=== PATIENT | female | born 1995 | race Caucasian/White ===

== ENCOUNTER 2020-06-09 19:26 | Inpatient (IN) | payer MEDICAID, OTHER ==
[~2020-06-09] VITALS: Ht 167.6 cm; Wt 78.5 kg
[2020-06-09 20:13] LABS: Basophils # (auto) 0 10 ^3/uL (0-0.2); Basophils % (auto) 0.4 % (0.0-2.0); Eosinophils # (auto) 0.3 10 ^3/uL (0-0.8); Eosinophils % (auto) 3.4 % (0.0-7.0); Hematocrit 36.4 % (36.0-46.0); Hemoglobin 12.7 g/dL (12.2-16.2); Lymphocytes # (auto) 1.9 10 ^3/uL (0.4-5.4); Mean Corpuscular Hemoglobin 30.6 pg (28.0-32.0); Mean Corpuscular Hgb Conc. 34.9 g/dL (32.0-36.0); Mean Corpuscular Volume 87.7 fL (80.0-100.0); Monocytes # (auto) 0.6 10 ^3/uL (0-1.3); Monocytes % (auto) 7.4 % (0.0-12.0); Neutrophils # (auto) 5.6 10 ^3/uL (1.6-8.6); Neutrophils % (auto) 65.8 % (37.0-80.0); Platelet Count (auto) 205 10^3/uL (140-450); Red Blood Cells 4.15 10^6/uL (4.0-5.20); Red Cell Distribution Width 13.3 % (11.8-14.3); White Blood Cell 8.4 10^3/uL (4.4-10.8)
[2020-06-09 20:37] LABS: Albumin 3.5 g/dL (3.4-5.0); Calcium 8.6 mg/dL (8.5-10.1); Potassium 4.2 mmol/L (3.5-5.1)
[2020-06-09 20:41] LABS: BUN/Creatinine Ratio 23.2; Bilirubin, Total 0.3 mg/dL (0.2-1.0)
[2020-06-09] MEDS ORDERED: IODIXANOL 320MG/ML 100ML BTL IV ONE (21:14)
[2020-06-09 21:50] LABS: Urine Bacteria FEW /hpf (None Seen); Urine Blood Negative /uL (Negative); Urine Specific Gravity 1.011 (1.001-1.035); Urine WBC 31 /hpf (0 - 5)
[2020-06-09] MEDS ORDERED: MORPHINE SULFATE 4 MG/ML SYR/VIAL IV ONE (22:45)
[2020-06-09] MEDS ORDERED: KETOROLAC TROMETH 30 MG/ML 1ML VIAL IV ONE (22:45)
[2020-06-09] MEDS ORDERED: SODIUM CHLORIDE 0.9% 1,000 ML IV ONE (22:45)
[2020-06-09] MEDS ORDERED: ONDANSETRON HCL 4 MG/2 ML VIAL IV ONE (22:45)
[2020-06-09] MEDS: cefTRIAXone 1GM/50ML D5W 50 ML IV ONE ×2 (23:08→23:23)
[2020-06-10] MEDS ORDERED: ACETAMINOPHEN 325 MG TAB PO PRN (02:45)
[2020-06-10] MEDS ORDERED: TAMSULOSIN HYDROCHLORIDE 0.4 MG CAP PO ONE (02:45)
[2020-06-10] MEDS ORDERED: KETOROLAC TROMETH 30 MG/ML 1ML VIAL IV PRN (02:45)
[2020-06-10] MEDS ORDERED: TEMAZEPAM 15 MG CAP PO PRN (02:45)
[2020-06-10] MEDS: cefTRIAXone 1GM/50ML D5W 50 ML IV SCH (09:00)
[2020-06-10] MEDS: FAMOTIDINE 20 MG TAB PO SCH ×2 (09:34→21:41)
[2020-06-10] MEDS ORDERED: MORPHINE SULF INJ 2 MG/ML SYRINGE 1ML IV ONE (13:00)
[2020-06-10] MEDS: ONDANSETRON HCL 4 MG/2 ML VIAL IV PRN (13:12)
[2020-06-10] MEDS ORDERED: MANNITOL FTV 25% 12.5 GM/50 ML 50 ML IV ONE ×2 (15:30)
[2020-06-10] MEDS ORDERED: PROBCAP38 OR (16:32)
[2020-06-10] MEDS ORDERED: PREN-96 PO (16:32)
[2020-06-10 16:36] VITALS: BP 118/77
[2020-06-10] MEDS: HYDROmorphone HCL 2 MG/ML VL IV PRN (20:20)
[2020-06-10 21:50] VITALS: BP 105/54
[2020-06-11 04:00] VITALS: BP 108/63
[2020-06-11] MEDS: HYDROmorphone HCL 2 MG/ML VL IV PRN ×2 (05:07→20:07)
[2020-06-11 05:44] LABS: Basophils # (auto) 0 10 ^3/uL (0-0.2); Basophils % (auto) 0.4 % (0.0-2.0); Eosinophils # (auto) 0.1 10 ^3/uL (0-0.8); Eosinophils % (auto) 2.4 % (0.0-7.0); Hematocrit 33.9 % (36.0-46.0); Hemoglobin 12.2 g/dL (12.2-16.2); Lymphocytes # (auto) 1.1 10 ^3/uL (0.4-5.4); Lymphocytes % (auto) 18.4 % (10.0-50.0); Mean Corpuscular Hemoglobin 31.4 pg (28.0-32.0); Mean Corpuscular Volume 87.3 fL (80.0-100.0); Monocytes # (auto) 0.5 10 ^3/uL (0-1.3); Monocytes % (auto) 7.9 % (0.0-12.0); Neutrophils # (auto) 4.4 10 ^3/uL (1.6-8.6); Neutrophils % (auto) 70.9 % (37.0-80.0); Nucleated Red Blood Cells % 0.1 %; Platelet Count (auto) 177 10^3/uL (140-450); Red Blood Cells 3.89 10^6/uL (4.0-5.20); Red Cell Distribution Width 13.1 % (11.8-14.3); White Blood Cell 6.2 10^3/uL (4.4-10.8)
[2020-06-11 06:17] LABS: BUN/Creatinine Ratio 15.2; Calcium 8.2 mg/dL (8.5-10.1)
[2020-06-11 09:00] VITALS: BP 105/56
[2020-06-11] MEDS: FAMOTIDINE 20 MG TAB PO SCH ×2 (09:26→22:57)
[2020-06-11] MEDS: cefTRIAXone 1GM/50ML D5W 50 ML IV SCH (09:26)
[2020-06-11] MEDS ORDERED: SULF400T11 PO (10:08)
[2020-06-11] MEDS ORDERED: TAMSULOSIN HYDROCHLORIDE 0.4 MG CAP PO ONE (10:15)
[2020-06-11] MEDS ORDERED: TAM04C PO (12:15)
[2020-06-11 13:00] VITALS: BP 108/61
[2020-06-11 13:38] VITALS: BP 108/67
[2020-06-11 16:52] VITALS: BP 114/60
[2020-06-11] MEDS: ONDANSETRON HCL 4 MG/2 ML VIAL IV PRN (20:06)
[2020-06-11 22:00] VITALS: BP 110/64
[2020-06-12] MEDS: HYDROmorphone HCL 2 MG/ML VL IV PRN ×3 (04:19→21:10)
[2020-06-12 05:00] VITALS: BP 86/58
[2020-06-12] MEDS: ONDANSETRON HCL 4 MG/2 ML VIAL IV PRN ×3 (05:12→21:10)
[2020-06-12] MEDS ORDERED: MANNITOL FTV 25% 12.5 GM/50 ML 50 ML IV ONE (08:00)
[2020-06-12] MEDS ORDERED: ceFAZolin 1GM/50ML 50 ML IV ONE (08:04)
[2020-06-12 08:35] LABS: INR 0.95 (0.9-1.15)
[2020-06-12] MEDS ORDERED: IOHEXOL 300 MG/ML 100ML BOTTLE IJ ONE (08:54)
[2020-06-12 09:00] VITALS: BP 95/51
[2020-06-12] MEDS ORDERED: SUCCINYLCHOLINE CHLORIDE 20 MG/ML 10ML VIAL IV ONE (09:04)
[2020-06-12] MEDS ORDERED: GLYCOPYRROLATE 0.2 MG/ML 1ML VIAL IV ONE (09:10)
[2020-06-12] MEDS ORDERED: ePHEDrine SULFATE 50 MG/ML AMP IV ONE (09:10)
[2020-06-12] MEDS ORDERED: fentaNYL CITRATE 100 MCG/2 ML VL ONE (09:10)
[2020-06-12] MEDS ORDERED: MIDAZOLAM HCL 1MG/1ML-2 ML VIAL ONE (09:10)
[2020-06-12] MEDS ORDERED: NEOSTIGMINE 1 MG/ML INJ (10mg/10ML VIAL) IV ONE (09:10)
[2020-06-12] MEDS ORDERED: LIDOCAINE 2% (LOCAL ANESTH.) PF 5ml SDV ONE (09:17)
[2020-06-12] MEDS ORDERED: PROPOFOL 10 MG/ML 20 ML IV ONE (09:17)
[2020-06-12] MEDS ORDERED: ROCURONIUM 10MG/ML 10ML VIAL IV ONE (09:17)
[2020-06-12] MEDS ORDERED: HYDROmorphone HCL 2 MG/ML VL IV PRN (10:45)
[2020-06-12] MEDS ORDERED: ONDANSETRON HCL 4 MG/2 ML VIAL IV PRN (10:45)
[2020-06-12 13:00] VITALS: BP 108/67
[2020-06-12] MEDS: cefTRIAXone 1GM/50ML D5W 50 ML IV SCH (13:40)
[2020-06-12] MEDS: FAMOTIDINE 20 MG TAB PO SCH ×2 (13:50→21:10)
[2020-06-12] MEDS: IBUPROFEN 400 MG TAB PO PRN (16:59)
[2020-06-12 17:00] VITALS: BP 110/65
[2020-06-13] MEDS: HYDROmorphone HCL 2 MG/ML VL IV PRN (02:24)
[2020-06-13] MEDS: ONDANSETRON HCL 4 MG/2 ML VIAL IV PRN (02:31)
[2020-06-13 04:47] VITALS: BP 103/53
[2020-06-13 07:00] LABS: Basophils # (auto) 0 10 ^3/uL (0-0.2); Basophils % (auto) 0.2 % (0.0-2.0); Eosinophils # (auto) 0.1 10 ^3/uL (0-0.8); Eosinophils % (auto) 2.3 % (0.0-7.0); Hematocrit 34.2 % (36.0-46.0); Hemoglobin 11.9 g/dL (12.2-16.2); Lymphocytes # (auto) 1.7 10 ^3/uL (0.4-5.4); Lymphocytes % (auto) 29.5 % (10.0-50.0); Mean Corpuscular Hemoglobin 30.2 pg (28.0-32.0); Mean Corpuscular Hgb Conc. 34.7 g/dL (32.0-36.0); Monocytes # (auto) 0.4 10 ^3/uL (0-1.3); Monocytes % (auto) 7.6 % (0.0-12.0); Neutrophils # (auto) 3.6 10 ^3/uL (1.6-8.6); Neutrophils % (auto) 60.4 % (37.0-80.0); Platelet Count (auto) 189 10^3/uL (140-450); Red Blood Cells 3.93 10^6/uL (4.0-5.20); Red Cell Distribution Width 13.3 % (11.8-14.3); White Blood Cell 5.9 10^3/uL (4.4-10.8)
[2020-06-13 07:20] LABS: Calcium 8.3 mg/dL (8.5-10.1); Potassium 4.1 mmol/L (3.5-5.1)
[2020-06-13 07:22] LABS: BUN/Creatinine Ratio 16.4
[2020-06-13] MEDS: cefTRIAXone 1GM/50ML D5W 50 ML IV SCH (08:51)
[2020-06-13] MEDS: FAMOTIDINE 20 MG TAB PO SCH (08:52)
[2020-06-13] MEDS: IBUPROFEN 400 MG TAB PO PRN (08:55)
[2020-06-13 09:00] VITALS: BP 105/63
[2020-06-13 13:00] VITALS: BP 108/62
== END 2020-06-13 13:14 | disposition home or self-care (01) | DRG 446 ==
LOC: ER 19:30 → OVERFLOW 19:31 → CENTRAL 06-10 14:59
PROVIDERS: ADMIT Nurse Practitioner; ATTEND Internal Medicine Pulmonary Disease
PROC: 0TC78ZZ Extirpation of Matter from Left Ureter, Via Natural or Artificial Opening Endoscopic (ICD-10-PCS; 2020-06-12)
PROC: 0T9B80Z Drainage of Bladder with Drainage Device, Via Natural or Artificial Opening Endoscopic (ICD-10-PCS; 2020-06-12)
PROC: BT1F1ZZ Fluoroscopy of Left Kidney, Ureter and Bladder using Low Osmolar Contrast (ICD-10-PCS; 2020-06-12)
PROC: 0T778DZ Dilation of Left Ureter with Intraluminal Device, Via Natural or Artificial Opening Endoscopic (ICD-10-PCS; principal; 2020-06-12 09:10)
DX: N13.6 Pyonephrosis (principal); B96.20 Unspecified Escherichia coli [E. coli] as the cause of diseases classified elsewhere; R00.2 Palpitations; Z87.440 Personal history of urinary (tract) infections; Z88.5 Allergy status to narcotic agent; Z20.822 Contact with and (suspected) exposure to COVID-19
CPT/HCPCS: 36415; 71045; 74018; 74177; 76001; 80048; 80053; 81001; 83605; 84443; 84702; 85025; 85610; 85730; 86850; 86900; 86901; 87040; 87086; 87088; 87186; 87426; 93005; 96365; 96366; 96375; 96376; G0378; J0330; J0690; J0696; J1885; J2001; J2250; J2405; J2704; Q9967